=== PATIENT | male | born 1965 | race Caucasian/White ===

== ENCOUNTER → 2020-10-09 | Emergency (ER) | payer MEDICAID ==
[~2020-10-09] VITALS: Ht 182.9 cm; Wt 95.5 kg
[2020-10-09 11:15] VITALS: BP 153/76
[2020-10-09 11:41] LABS: BASOPHILS % (AUTO) 0.7 % (0-1); EOSINOPHILS # (AUTO) 0.2 X10'3 (0-0.9); EOSINOPHILS % (AUTO) 3.9 % (0-6); HEMATOCRIT 47.8 % (42.0-52.0); HEMOGLOBIN 16.1 g/dl (14.0-17.9); LYMPHOCYTES # (AUTO) 1.1 X10'3 (1.1-4.8); LYMPHOCYTES % (AUTO) 17.7 % (21-51); MEAN CORPUSCULAR HEMOGLOBIN 30.7 PG (27.0-31.0); MEAN CORPUSCULAR HGB CONC 33.7 g/dL (33.0-36.5); MEAN PLATELET VOLUME 8.1 FL (7.4-10.4); MONOCYTES # (AUTO) 0.5 X10'3 (0-0.9); MONOCYTES % (AUTO) 8.8 % (2-12); NEUTROPHILS # (AUTO) 4.1 X10'3 (1.8-7.7); NEUTROPHILS % (AUTO) 68.9 % (42-75); PLATELET COUNT 269 X10'3 (140-440); RED BLOOD COUNT 5.25 X10'6 (4.70-6.10); RED CELL DISTRIBUTION WIDTH 13.5 % (11.5-14.5)
[2020-10-09 11:56] LABS: D-DIMER 0.82 MG/L FEU (0-0.50)
[2020-10-09 11:59] LABS: ALANINE AMINOTRANSFERASE 101 U/L (12-78); ALBUMIN 3.5 G/DL (3.4-5.0); ALKALINE PHOSPHATASE 82 IU/L (46-116); ANION GAP 6 (8-16); ASPARTATE AMINO TRANSFERASE 57 U/L (10-37); BILIRUBIN,TOTAL 0.7 MG/DL (0.1-1.0); BLOOD UREA NITROGEN 19 MG/DL (7-18); BUN/CREATININE RATIO 16.2 (5.4-32.0); CALCIUM 8.9 MG/DL (8.5-10.1); CHLORIDE 107 MMOL/L (99-107); CREATININE 1.17 MG/DL (0.60-1.10); GLUCOSE 108 MG/DL (70-104); POTASSIUM 4.7 MMOL/L (3.5-5.1); SODIUM 140 MMOL/L (135-145); TOTAL CARBON DIOXIDE 27.4 MMOL/L (24-32); TOTAL PROTEIN 7.1 G/DL (6.4-8.2); eGFR 65 ML/MIN
[2020-10-09 12:06] LABS: MAGNESIUM 2.3 MG/DL (1.5-2.4)
--- NOTE | 2020-10-09 13:04 | NUR ---
CALLED NOT IN LOBBY, TOLD ADMIT [employer]PER[employer] THAT HE WAS GOING TO GET SOMETHING TO EAT AND WOULD BE BACK.....
--- NOTE | 2020-10-09 15:25 | NUR ---
pt. called multiple times from the lobby, pt. not in the lobby. after pt's lab came back attempted to call pt. at home to return to the er for abnormal labs.... no phone number listed on pt's info. er admitting looking for phone number through pt's insurance info.... phone number called message left for pt. to return our call
== END | disposition left against medical advice (07) ==
LOC: ER 11:09
DX: R06.02 Shortness of breath (principal); R07.89 Other chest pain; Z53.21 Procedure and treatment not carried out due to patient leaving prior to being seen by health care provider
CPT/HCPCS: 36415; 71045; 80053; 83735; 83880; 84484; 85025; 85379; 93005

== ENCOUNTER 2020-11-16 09:44 | Inpatient (IN) | payer MEDICAID ==
[~2020-11-16] VITALS: Ht 182.9 cm; Wt 91.1 kg
[2020-11-16 10:40] LABS: HEMOGLOBIN 17.5 g/dl (14.0-17.9); RED BLOOD COUNT 5.81 X10'6 (4.70-6.10); WHITE BLOOD COUNT 7.5 X10'3 (4.5-11.0)
[2020-11-16 10:41] LABS: BASOPHILS % (AUTO) 0.6 % (0-1); EOSINOPHILS # (AUTO) 0.1 X10'3 (0-0.9); EOSINOPHILS % (AUTO) 1.7 % (0-6); HEMATOCRIT 52.6 % (42.0-52.0); LYMPHOCYTES # (AUTO) 1.3 X10'3 (1.1-4.8); LYMPHOCYTES % (AUTO) 17.4 % (21-51); MEAN CORPUSCULAR HEMOGLOBIN 30.2 PG (27.0-31.0); MEAN CORPUSCULAR HGB CONC 33.3 g/dL (33.0-36.5); MEAN CORPUSCULAR VOLUME 90.5 FL (78-98); MEAN PLATELET VOLUME 8.3 FL (7.4-10.4); MONOCYTES # (AUTO) 0.7 X10'3 (0-0.9); MONOCYTES % (AUTO) 9.1 % (2-12); NEUTROPHILS # (AUTO) 5.3 X10'3 (1.8-7.7); NEUTROPHILS % (AUTO) 71.2 % (42-75); PLATELET COUNT 279 X10'3 (140-440); RED CELL DISTRIBUTION WIDTH 13.3 % (11.5-14.5)
[2020-11-16 10:53] LABS: PARTIAL THROMBOPLASTIN TIME 29 SECONDS (22-32)
[2020-11-16 10:56] LABS: ANION GAP 11 (8-16); BLOOD UREA NITROGEN 19 MG/DL (7-18); BUN/CREATININE RATIO 15.6 (5.4-32.0); CALCIUM 8.8 MG/DL (8.5-10.1); CHLORIDE 105 MMOL/L (99-107); CREATININE 1.22 MG/DL (0.60-1.10); GLUCOSE 111 MG/DL (70-104); POTASSIUM 4.1 MMOL/L (3.5-5.1); SODIUM 141 MMOL/L (135-145); TOTAL CARBON DIOXIDE 25.1 MMOL/L (24-32); eGFR 62 ML/MIN
[2020-11-16 10:57] LABS: ALANINE AMINOTRANSFERASE 48 U/L (12-78); ALBUMIN 3.9 G/DL (3.4-5.0); ALKALINE PHOSPHATASE 75 IU/L (46-116); ASPARTATE AMINO TRANSFERASE 31 U/L (10-37); BILIRUBIN,TOTAL 0.8 MG/DL (0.1-1.0); TOTAL PROTEIN 7.7 G/DL (6.4-8.2)
[2020-11-16 11:02] LABS: MAGNESIUM 2.3 MG/DL (1.5-2.4)
[2020-11-16] MEDS ORDERED: iohexol 350MG/ML 100ml bottle IV ONE (11:04)
[2020-11-16] MEDS ORDERED: metoprolol tartrate 1mg/ml inj IV PRN (12:20)
[2020-11-16] MEDS ORDERED: nitroGLYCERIN 0.4mg SUBLingual tab SL PRN (12:20)
[2020-11-16] MEDS ORDERED: morphine 2 MG/ML inj. syringe IV PRN ×2 (12:20)
[2020-11-16] MEDS ORDERED: acetaminophen 325mg tablet PO PRN (12:20)
[2020-11-16] MEDS ORDERED: regadenoson 0.4mg/5ml syringe IV PRN (12:20)
[2020-11-16] MEDS ORDERED: mag hydrox/Alum hydrox/simeth 30ml oral suspension PO PRN (12:20)
[2020-11-16] MEDS ORDERED: magnesium hydroxide 30ml (MOM) UD suspension PO PRN (12:20)
[2020-11-16] MEDS ORDERED: ondansetron/PF 4mg/2ml inj IV PRN (12:20)
[2020-11-16] MEDS ORDERED: aminophylline 250mg/10ml inj. IV PRN (12:20)
[2020-11-16 12:38] LABS: CLARITY,URINE SLIGHTLY CLOUDY (Clear); COLOR,URINE YELLOW (Yellow); GLUCOSE, URINE NEGATIVE (Neg); KETONES,URINE NEGATIVE (Neg); LEUKOCYTE ESTERASE ,URINE NEGATIVE (Neg); NITRITES, URINE NEGATIVE (Neg); OCCULT BLOOD,URINE NEGATIVE (Neg); PH,URINE 5.5 (4.8-8.0); PROTEIN,URINE NEGATIVE (Neg); UROBILINOGEN,URINE 0.2 E.U/dL (0.2-1.0)
[2020-11-16 12:39] LABS: UA COLLECTION TYPE URINAL
[2020-11-16 12:52] LABS: BACTERIA,URINE FEW /HPF (Neg); MUCUS STRANDS FEW /LPF (Neg); RBC,URINE 0-2 /HPF (0-2); SQUAMOUS EPITHELIAL CELL,UR FEW /LPF (FEW); URINE AMPHETAMINE SCREEN POSITIVE (Neg); URINE BARBITUATE SCREEN NEGATIVE (Neg); URINE BENZODIAZEPINES SCREEN NEGATIVE (Neg); URINE CANNABINOID SCREEN POSITIVE (Neg); URINE COCAINE SCREEN NEGATIVE (Neg); URINE METHADONE SCREEN NEGATIVE (Neg); URINE OPIATE SCREEN NEGATIVE (Neg); URINE PHENCYCLIDINE SCREEN NEGATIVE (Neg); WBC,URINE 0-4 /HPF (0-4)
[2020-11-16] MEDS ORDERED: NO HOME MEDS (12:58)
--- NOTE | 2020-11-16 15:42 | NUR ---
PAGED [employer]EE [employer] FOR ORDERED ECHO TO BE DONE TODAY.
[2020-11-16 16:23] VITALS: BP 145/96
[2020-11-16 18:00] VITALS: BP 133/68
[2020-11-16] MEDS: enoxaparin 30mg/0.3ml syringe SQ SCH (19:35)
[2020-11-16 19:37] VITALS: BP 131/83
[2020-11-16 22:00] VITALS: BP 141/93
[2020-11-17] VITALS (10 sets, daily range): BP systolic 106–140; BP diastolic 58–95
--- NOTE | 2020-11-17 06:14 | NUR ---
Problems reprioritized. Patient report given, questions answered & plan of care reviewed with JERMAINE Alvarado.
--- NOTE | 2020-11-17 06:37 | NUR ---
Patient in room MED 313. I have received report from JERMAINE Herbert and had the opportunity to ask questions and assume patient care.
[2020-11-17] MEDS: enoxaparin 30mg/0.3ml syringe SQ SCH (07:34)
[2020-11-17 08:25] LABS: BASOPHILS # (AUTO) 0.1 X10'3 (0-0.2); BASOPHILS % (AUTO) 0.8 % (0-1); EOSINOPHILS # (AUTO) 0.5 X10'3 (0-0.9); EOSINOPHILS % (AUTO) 5.7 % (0-6); LYMPHOCYTES # (AUTO) 1.5 X10'3 (1.1-4.8); LYMPHOCYTES % (AUTO) 19.3 % (21-51); MEAN CORPUSCULAR HEMOGLOBIN 30.5 PG (27.0-31.0); MEAN CORPUSCULAR HGB CONC 33.8 g/dL (33.0-36.5); MEAN CORPUSCULAR VOLUME 90.1 FL (78-98); MEAN PLATELET VOLUME 8.5 FL (7.4-10.4); MONOCYTES # (AUTO) 0.8 X10'3 (0-0.9); MONOCYTES % (AUTO) 9.6 % (2-12); NEUTROPHILS # (AUTO) 5.2 X10'3 (1.8-7.7); NEUTROPHILS % (AUTO) 64.6 % (42-75); PLATELET COUNT 279 X10'3 (140-440); RED BLOOD COUNT 5.99 X10'6 (4.70-6.10); RED CELL DISTRIBUTION WIDTH 13.6 % (11.5-14.5)
[2020-11-17 08:29] LABS: HEMOGLOBIN 18.3 g/dl (14.0-17.9)
--- NOTE | 2020-11-17 08:32 | NUR ---
notified of Critical value PAGER ID: [phone] MESSAGE: Re: [phone]. Frank Mendez. Critical value; B 18.3. Patient is now down in stress test.Thanks [phone] Addendum: 11/17/20 at 1200 by Jenny Bravo RN No new orders.
[2020-11-17 08:49] LABS: ALBUMIN 3.4 G/DL (3.4-5.0); ANION GAP 10 (8-16); BLOOD UREA NITROGEN 18 MG/DL (7-18); BUN/CREATININE RATIO 14.8 (5.4-32.0); CALCIUM 8.5 MG/DL (8.5-10.1); CHLORIDE 106 MMOL/L (99-107); CREATININE 1.22 MG/DL (0.60-1.10); GLUCOSE 111 MG/DL (70-104); POTASSIUM 4.3 MMOL/L (3.5-5.1); SODIUM 139 MMOL/L (135-145); TOTAL CARBON DIOXIDE 23.3 MMOL/L (24-32); eGFR 62 ML/MIN
--- NOTE | 2020-11-17 12:00 | NUR ---
notified. PAGER ID: [phone] MESSAGE: Re: Frank Mendez. Abnormal Stress test findings. Cardiology is recommended. Also, can we feed him while we wait? thanks. Jenny. [phone]
[2020-11-17] MEDS ORDERED: SIMV5TAB58 PO (12:14)
[2020-11-17] MEDS ORDERED: ASPI81TA52 PO (12:14)
[2020-11-17] MEDS ORDERED: CARV3.12 PO (12:14)
--- NOTE | 2020-11-17 13:04 | NUR ---
Patient stable for discharge per md orders. Discharge instructions including strict follow up, education, and smoking cessation. Prescriptions sent to [facility] on [address]. IV taken out with cannula intact. cardiac monitor discontinued. Patient ambulated to lobby with RN. Patient seen leaving premises in private vehicle.
== END 2020-11-17 12:50 | disposition home or self-care (01) | DRG 145 ==
LOC: ER 09:45 → ED HOLD 12:19 → OBSVTOIN 12:19 → MED 3N 15:20
PROVIDERS: ADMIT Family Medicine; ATTEND Family Medicine
PROC: B32T1ZZ Computerized Tomography (CT Scan) of Left Pulmonary Artery using Low Osmolar Contrast (ICD-10-PCS; 2020-11-16)
PROC: B32S1ZZ Computerized Tomography (CT Scan) of Right Pulmonary Artery using Low Osmolar Contrast (ICD-10-PCS; 2020-11-16)
PROC: 4A02XM4 Measurement of Cardiac Total Activity, External Approach (ICD-10-PCS; principal; 2020-11-17)
PROC: 3E033HZ Introduction of Radioactive Substance into Peripheral Vein, Percutaneous Approach (ICD-10-PCS; 2020-11-17)
DX: R09.1 Pleurisy (principal); I50.9 Heart failure, unspecified; F15.10 Other stimulant abuse, uncomplicated; Z72.0 Tobacco use
CPT/HCPCS: 36415; 71045; 71275; 78452; 80048; 80053; 80305; 81001; 83735; 83880; 84484; 85025; 85610; 85730; 87081; 93005; 93017; 93306; 99285; A9500; G0378; J1650; J2785; Q9967

== ENCOUNTER 2021-04-11 09:24 | Day surgery (SDC) | payer MEDICAID ==
[2021-04-06 16:07] LABS: BASOPHILS % (AUTO) 0.5 % (0-1); EOSINOPHILS # (AUTO) 0.2 X10'3 (0-0.9); EOSINOPHILS % (AUTO) 3.3 % (0-6); HEMATOCRIT 46.3 % (42.0-52.0); HEMOGLOBIN 15.7 g/dl (14.0-17.9); LYMPHOCYTES % (AUTO) 15.5 % (21-51); MEAN CORPUSCULAR HEMOGLOBIN 30.4 PG (27.0-31.0); MEAN CORPUSCULAR HGB CONC 33.8 g/dL (33.0-36.5); MEAN CORPUSCULAR VOLUME 89.7 FL (78-98); MEAN PLATELET VOLUME 8.3 FL (7.4-10.4); MONOCYTES # (AUTO) 0.6 X10'3 (0-0.9); MONOCYTES % (AUTO) 9.2 % (2-12); NEUTROPHILS # (AUTO) 4.6 X10'3 (1.8-7.7); NEUTROPHILS % (AUTO) 71.5 % (42-75); PLATELET COUNT 245 X10'3 (140-440); RED BLOOD COUNT 5.16 X10'6 (4.70-6.10); RED CELL DISTRIBUTION WIDTH 13.3 % (11.5-14.5); WHITE BLOOD COUNT 6.5 X10'3 (4.5-11.0)
[2021-04-06 16:14] LABS: PARTIAL THROMBOPLASTIN TIME 29 SECONDS (22-32)
[2021-04-06 16:15] LABS: ALANINE AMINOTRANSFERASE 54 U/L (12-78); ALBUMIN 3.6 G/DL (3.4-5.0); ALBUMIN/GLOBULIN RATIO 1.1 (1.1-1.5); ALKALINE PHOSPHATASE 85 IU/L (46-116); ANION GAP 9 (8-16); ASPARTATE AMINO TRANSFERASE 41 U/L (10-37); BILIRUBIN,TOTAL 0.7 MG/DL (0.1-1.0); BLOOD UREA NITROGEN 20 MG/DL (7-18); BUN/CREATININE RATIO 15.9 (5.4-32.0); CALCIUM 8.8 MG/DL (8.5-10.1); CHLORIDE 110 MMOL/L (99-107); CREATININE 1.26 MG/DL (0.60-1.10); GLUCOSE 102 MG/DL (70-104); POTASSIUM 4.1 MMOL/L (3.5-5.1); SODIUM 146 MMOL/L (135-145); TOTAL CARBON DIOXIDE 27.2 MMOL/L (24-32); eGFR 59 ML/MIN
[~2021-04-11] VITALS: Ht 182.9 cm; Wt 94.0 kg
[2021-04-11] VITALS (14 sets, daily range): BP systolic 111–140; BP diastolic 73–99
[~2021-04-11 09:24] MED LIST: CARV3.12 PO
[2021-04-11] MEDS ORDERED: normal saline 1,000 ML IV SCH (09:55)
[2021-04-11] MEDS ORDERED: LORazepam 0.5 MG tablet PO PRN (09:55)
[2021-04-11] MEDS ORDERED: diphenhydrAMINE 25mg capsule PO PRN (09:55)
[2021-04-11] MEDS ORDERED: nitroGLYCERIN 0.4mg SUBLingual tab SL PRN ×2 (09:55→12:40)
[2021-04-11] MEDS ORDERED: ASPI-1265 PO (11:02)
[2021-04-11] MEDS ORDERED: SIMV5TAB58 PO (11:02)
[2021-04-11] MEDS ORDERED: CARV3.12 PO (11:05)
[2021-04-11] MEDS ORDERED: iohexol 350 MG/ML 50ML vial IV ONE (11:18)
[2021-04-11] MEDS ORDERED: iohexol 350MG/ML 100ml bottle IV ONE (11:18)
[2021-04-11] MEDS ORDERED: fentaNYL/PF 50MCG/1 ML 2ML syringe ONE (11:18)
[2021-04-11] MEDS ORDERED: LIDOcaine 1% (10mg/ml)w/preservative injection 20ml MDV ONE (11:18)
[2021-04-11] MEDS ORDERED: midazolam 1 mg/ML 2ml injection ONE (11:18)
[2021-04-11] MEDS ORDERED: HYDROcodone/acetaminophen 10/325mg tab PO PRN (12:40)
[2021-04-11] MEDS ORDERED: HYDROcodone/acetaminophen 5mg/325mg tablet PO PRN (12:40)
[2021-04-11] MEDS ORDERED: OXAZEpam 15mg capsule PO PRN (12:40)
[2021-04-11] MEDS ORDERED: ondansetron/PF 4mg/2ml inj IV PRN (12:40)
[2021-04-11] MEDS ORDERED: proCHLORperazine 10 MG/2 ml inj IV PRN (12:40)
== END 2021-04-11 18:20 | disposition home or self-care (01) ==
LOC: SSTAY O 09:24
PROVIDERS: ATTEND Internal Medicine Cardiovascular Disease
DX: R94.39 Abnormal result of other cardiovascular function study (principal); R07.89 Other chest pain; I25.10 Atherosclerotic heart disease of native coronary artery without angina pectoris; I42.9 Cardiomyopathy, unspecified; Z98.890 Other specified postprocedural states; Z87.891 Personal history of nicotine dependence; Z96.652 Presence of left artificial knee joint; Z79.899 Other long term (current) drug therapy
CPT/HCPCS: 36415; 71046; 80053; 83880; 85025; 85610; 85730; 93005; 93458; 99152; C1760; C1769; J1644; J2001; J2250; J3010; J7030; Q0163; Q9967; A4620; A6258

== ENCOUNTER 2022-12-06 13:21 | Outpatient (CLI) | payer MEDICAID ==
[~2022-12-06 13:21] MED LIST changes: +ASPI-1265 PO; +SIMV5TAB58 PO
== END 2022-12-06 23:59 | disposition home or self-care (01) ==
LOC: VAS 13:21
PROVIDERS: ATTEND Family Medicine
DX: R23.0 Cyanosis (principal)
CPT/HCPCS: 93922; 93925

== ENCOUNTER 2023-10-06 12:34 | Outpatient (CLI) | payer MEDICAID | END 2023-10-06 23:59 | disposition home or self-care (01) | LOC: VAS 12:34 | PROVIDERS: ATTEND Podiatrist | DX: E11.51 Type 2 diabetes mellitus with diabetic peripheral angiopathy without gangrene (principal); I73.9 Peripheral vascular disease, unspecified | CPT/HCPCS: 93922; 93926 ==